=== PATIENT | female | born 1995 | race African-American/Black ===

== ENCOUNTER 2019-04-15 09:43 | Emergency (ER) | payer OTHER | END 2019-04-15 12:20 | disposition home or self-care (01) | LOC: JERFT 09:43 ==

== ENCOUNTER 2019-04-19 08:05 | Emergency (ER) | payer OTHER ==
[2019-04-19 08:30] VITALS: BP 124/75; PULSE 78; TEMP 98.2; BMI 21.9
[2019-04-19] MEDS ORDERED: KETOROLAC TROMETHAMINE 60 MG/2 ML VIAL IM ONE (08:58)
[2019-04-19] MEDS ORDERED: LIDOCAINE 5% TOPICAL PATCH TP ONE (08:59)
[2019-04-19] MEDS ORDERED: CYCLOBENZAPRINE HCL 10 MG TABLET (FP) PO ONE (08:59)
[2019-04-19] MEDS ORDERED: CYCLOBENZAPRINE HCL 10 MG TABLET (FP) ONE (09:07)
[2019-04-19] MEDS ORDERED: KETOROLAC TROMETHAMINE 60 MG/2 ML VIAL ONE (09:07)
[2019-04-19] MEDS ORDERED: LIDOCAINE 5% TOPICAL PATCH ONE ×2 (09:07)
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
[2019-04-19] MEDS ORDERED: LIDOCAINE PATCH REMOVAL MC SCH (22:00)
== END 2019-04-19 10:03 | disposition home or self-care (01) ==
LOC: JERFT 08:05
PROC: 3E0233Z Introduction of Anti-inflammatory into Muscle, Percutaneous Approach (ICD-10-PCS; principal; 2019-04-19)
DX: S13.4XXA Sprain of ligaments of cervical spine, initial encounter (principal); M54.5 Low back pain; V43.52XA Car driver injured in collision with other type car in traffic accident, initial encounter; Y92.414 Local residential or business street as the place of occurrence of the external cause; Y93.89 Activity, other specified; Y99.8 Other external cause status
CPT/HCPCS: 99281-25